=== PATIENT | male | born 1940 | race Caucasian/White ===

== ENCOUNTER 2018-06-18 10:14 | Inpatient (IN) | payer BC, MEDICARE ==
--- NOTE | 2018-06-07 10:52 | ANES ---
Addendum entered and electronically signed by Woody Knox CRNA 06/20/18 08:16: Lungs clear, Heart S1 S2 regular. Has been on low dose lovenox, last dose yesterday at noon, ok to proceed. Did relate has not had BM since surgery. Discussed pursuing this issue as soon as able to take PO nourishment. Addendum entered and electronically signed by Woody Knox CRNA 06/18/18 10:46: Heart: S1S2 regular Lungs: Clear bilaterally, no changes since assessment Original Note: Anesthesia Pre Procedure Eval HOME MEDICATIONS aspirin 81 mg tablet,delayed release 81 mg PO DAILY 04/13/18 [Last Taken Unknown] ksmxiqdekqf-wndkcblplvr-mk-mineral#3 375 mg-300 mg-25 mg-0.5 mg tablet See Rx Instructions PO .COMPLEX 04/13/18 [Last Taken Unknown] multivitamin tablet 1 tab PO DAILY 04/13/18 [Last Taken Unknown] clotrimazole-betamethasone 1 %-0.05 % topical cream 1 applic TP BID #45 g [Last Taken Unknown] triamcinolone acetonide 0.1 % topical cream 1 applic TP BID #80 g 05/22/18 [Last Taken Unknown] gabapentin 300 mg capsule 300 mg PO TID #90 cap 06/06/18 [Last Taken Unknown] Allergies/Adverse Reactions: Allergies Allergy/AdvReac Type Severity Reaction Status Date / Time morphine AdvReac nausea, Verified 06/06/18 08:30 vomiting - Planned Procedure Planned Procedure: LTK on 06/18/18, RTK on 06/20/18 Medication List Reviewed:: Yes Allergies Verified: Yes Medical History (Last Reviewed 06/07/18 @ 10:50 by Lonnie Duval CRNA) History of renal cell cancer (Resolved) Osteoarthritis (Chronic) Onset Date: Unknown Hyperlipidemia (Chronic) Onset Date: Unknown Arthritis (Chronic) Onset Date: Unknown Peripheral neuropathy Renal failure Hip pain Onset Date: Unknown Kidney stone Onset Date: Unknown Knee pain Onset Date: Unknown Surgical History (Last Reviewed 06/07/18 @ 10:50 by Lonnie Duval CRNA) Hx of melanoma excision Onset Date: ~2012 H/O colonoscopy Hx of kidney removal Onset Date: 2010 S/p nephrectomy Family History (Last Reviewed 06/07/18 @ 10:50 by Lonnie Duval CRNA) Father Heart disease - Family Anesthesia History Family History:: no untoward family reactions to anesthesia, no familial bleeding tendencies, no family history of clotting disorders, no family history of premature - Airway/Neck/Teeth Within Normal Limits:: Yes Denture Type: Full- Upper Mallampatti Score: 2 Thyromental (T-M) distance: > 6 cm Mandibulo Hyoid distance: > 3 cm - Respiratory Smoking Status: Former smoker Discussed smoking cessation including day of surgery: No Sleep Apnea currently treated: Yes Sleep Apnea by current assessment: No Discussed Risks/Treatment of ROSIO: No - Cardiovascular Patient History - Cardiac/Respiratory: Other - hx kidney cancer Tolerates Activity: Fair Heart Sounds: S1 & S2, Regular - Anesthesia Assessment and Plan ASA Class: PS, III Anesthesia Type Plan: Block - Left ultrasound guided peripher nerve block for postop analgesia, Spinal
[~2018-06-18 10:14] MED LIST: ROPIVACAINE HCL/PF 100 MG, EPINEPHrine 0.2 MG in NORMAL SALINE 100 ML IJ PRN; TRANEXAMIC ACID 1,000 MG in NORMAL SALINE 100 ML IV PRN; ceFAZolin SODIUM 1 GM VIAL IV PRN
[2018-06-18] MEDS: RINGER'S SOLUTION,LACTATED 1,000 ML IV PRN ×2 (10:55→12:40)
--- NOTE | 2018-06-18 13:19 | OR ---
Operative Report - Dictated Report Narrative: Date: 06/18/2018 Preoperative diagnosis: Left Knee degenerative joint disease. Postoperative diagnosis: Left Knee degenerative joint disease. Procedure: Left Total knee arthroplasty. Surgeon: Gabriel Osman M.D. Vp Security: John Sun PA-C Anesthesia: Spinal with regional block and local periarticular joint injection. Complications: None Specimens: Bone for disposal. Estimated blood loss: Minimal. Tourniquet time: 95 Minutes at 325 millimeters of mercury. Retained implants: Depuy Attune size 7 left lugged cemented posterior stabilized femoral component. Size 7 fixed-bearing cemented tibial platform. 7 by 5 millimeter posterior stabilized cross-linked tibial insert. 38 millimeter medialized patella button. Indications: Mr. Estrada is a 78-year-old gentleman who has bilateral knee arthrosis today he is here for a left total knee arthroplasty. This patient was followed in my clinic for period of time with significant complaints of left knee pain consistent with arthritic changes. He had failed conservative measures including, but not limited to, activity modification, passage of time, medications, and other conservative measures. Patient wished to proceed with surgical treatment. The risks, benefits, and alternatives were discussed in cli tatianna. The risks of , blood clots, bleeding, infection, nerve/tendon blood vessel/ injury, malposition of components, intraoperative fracture, postoperative limited range of motion, persistent pain, failure of components, and need for additional procedures. Patient wished to proceed consent was obtained after answering all questions. Procedure: After marking the correct extremity on the floor, the patient was taken to the operating room. A timeout was performed. IV antibiotics consisting of Ancef were administered prior to the procedure. A regional followed by spinal anesthetic was induced by anesthesia, per my request, on the operative table with all bony prominences well-padded. Vincent catheter was placed, and a bump was placed under the operative side buttock. SCDs and MARIA ELENA hose were utilized on the nonoperative leg. A well-padded tourniquet was applied to the operative thigh. The operative leg was then pre-scrubbed with alcoho,l prepped, and draped in a standard sterile fashion. After exsanguinating the extremity with an Esmarch bandage, the tourniquet was inflated. After marking out the anterior knee for standard incision centered over the patella, the skin was incised and dissected down to the joint retinaculum. The joint retinaculum was marked out as well as the horizontal axis of the patella, and a standard medial parapatellar arthrotomy was then made. The most proximal aspect of the quadriceps tendon and the patella tendon insertion were protected from release. A partial synovectomy was performed as well as a resection of the infrapatellar fat pad. The distal femoral fat pad proximal to the trochlea was also resected using cautery. The soft tissues were elevated off the medial aspect of the proximal tibia using a Rush elevator ensuring that we did not transect the medial collateral ligament. Upon initial evaluation range of motion was approximately 5 degrees to 130 degrees of flexion. There were signs of advanced arthrosis in the medial, lateral, and patellofemoral joint spaces. There were large marginal osteophytes which were removed with a rongeur. The knee was hyperflexed and the patella was tucked laterally. Protecting the surrounding soft tissues with Homans, an entry drill was placed down the femoral canal using Whitesides line for guidance into the entry point. The intramedullary femoral alignment sae was utilized in order to cut the distal femur in 5 degrees of valgus resecting 10 millimeters of bone. Next the distal femur was sized to a size 7. A posterior referencing guide was utilized to place the distal femoral cutting block in 3 degrees of external rotation. This was pinned into place. The rotation was confirmed both visually and based on anatomic landmarks. The 4 in 1 cutting jig of the appropriate size was utilized in order to make all bony cuts. The angle wing was used to ensure no notching. Retractors were utilized in order to protect surrounding soft tissues. This cut did not result in any excessive notching. We then cut the box centered over the distal femur. This allowed for resection of the anterior and posterior cruciate ligaments. I then turned my attention to the preparation of the tibia. Using an extra medullary tibial alignment sae, 3 millimeters of bone was resected off the medial articular surface. This was made perpendicular to the mechanical axis of the joint with the alignment sae centered over the ankle mortise. The alignment sae was checked and was noted to be parallel to the mechanical axis, centered over the medial one third of the tibial tubercle, par alleling the anterior surface of the tibia. We then turned our attention to the remaining meniscus and soft tissues. These were removed while protecting the surrounding ligaments and soft tissues. The marginal osteophytes off the anterior, posterior, medial, lateral aspects of the femur and tibia were removed. The tibia was sized out to a size 7. Next the tibia was drilled and punched in an externally rotated position. Next the trial femur and a series of tibial inserts were utilized in order to allow for full extension and maximal flexion. It was found that a 5 millimeter insert gave the best range of motion and stability at multiple flexion points as well as at full extension there was less than 2 mm of gapping both medially and laterally. There is minimal anterior translation with the knee at 90 degrees of flexion and no signs of being able to dislocate the knee. The patella was then prepared. The initial thickness was 23 millimeters. This was reamed down to 13 millimeters parallel to the anterior surface of the patella. It was sized out to a size 38 medialized patella button. This was then drilled and trialed. Without any medial restraint the patella tracked appropriately and did not sublux or dislocate. At this point, it was felt these were the appropriate sized implants, and all trials were removed. The standard periarticular joint injection consisting of ropivacaine, Toradol, and epinephrine were injected into the periarticular joint tissues. The bony surfaces were thoroughly irrigated with a pulsatile-suction saline irrigation device. A bone plug from the prior resected anterior chamfer cut was placed into the drill hole at the distal femur. The bony surfaces were then dried in preparation for placement of the implants. The cement was vacuum mixed per the anime designer's instructions. The cement was placed on the dry bony surfaces and posterior aspect of the implants. The implants were impacted into place, removing all extruded cement. At this point anesthesia administered tranexamic acid per protocol intravenously. The knee was placed in extension with axial loading with the trial insert while the cement cured. Once the cement cured, all remaining extruded cement was removed. The knee was placed through a range of motion with the trial insert to ensure appropriate range of motion and stability. Final range of motion was approximately 0 to 130 degrees. The knee was again thoroughly irrigated with pulsatile saline lavage. The final polyethylene insert was then impacted into place ensuring no retained soft tissues. The remaining periarticular joint injection was injected. A medium Hemovac drain was placed exiting superior laterally. The knee was then placed over a triangle and the arthrotomy was closed with interrupted #1 Vicryl after thoroughly irrigating the joint. The deep and subcutaneous tissues were closed with interrupted 0 and 3-0 Vicryl respectively. Skin was closed with a running subcutaneous 3-0 Monocryl and Prineo Dermabond dressing. 4 x 4's, Sof-Rol, and a full leg Lazaro wrap were applied. All sponge, needle, blade, and instrument counts were correct prior to closing the wounds. Postoperative condition: The patient was awoken and transferred to the postanesthesia care unit in stable condition. Plan is to be admitted to the inpatient medical/surgical floor postoperatively for 24 hours of IV antibiotics, physical therapy, occupational therapy, and medical comanagement. Patient will be weightbearing as tolerated with range of motion as tolerated. DVT prophylaxis will be with SCDs, MARIA ELENA hose, and pharmacological anticoagulation. Anticipated hospital stay is approximately 1-3 days.
[2018-06-18] MEDS ORDERED: diphenhydrAMINE HCL 50 MG/ML VIAL IV PRN (13:21)
[2018-06-18] MEDS ORDERED: ONDANSETRON HCL/PF 2 MG/ML VIAL IV PRN (13:21)
[2018-06-18] MEDS ORDERED: MAG HYDROX/ALUMINUM HYD/SIMETH 30 ML UDC PO PRN (13:21)
[2018-06-18] MEDS ORDERED: MAGNESIUM HYDROXIDE 30 ML UDC PO PRN (13:21)
[2018-06-18] MEDS ORDERED: HYDROmorphone HCL 1 MG/ML DISP.SYRIN IV PRN (13:21)
[2018-06-18] MEDS ORDERED: ACETAMINOPHEN 500 MG TABLET PO PRN (13:21)
[2018-06-18] MEDS ORDERED: ZOLPIDEM TARTRATE 5 MG TABLET PO PRN (13:21)
--- NOTE | 2018-06-18 13:39 | ANES ---
Post Anesthesia Discharge - Transfer of Care Transfer of Care handoff given to nurse: Yes - Discharge from PACU Discharge from PACU when meets criteria: Yes - Alert and comfortable
--- NOTE | 2018-06-18 13:39 | ANES ---
Anesthesia Procedure Note Procedure Note: ANESTHESIA PROCEDURE NOTE Date of Procedure: 06/18/2018 Time of procedure: 11:05 AM. Performed by: Woody Knox CRNA, MSN Personnel Adviser: Axel Donald RN. Preprocedure diagnosis: Left total knee arthroplasty. Post procedure diagnosis: Same. Procedure: Left Adductor Canal Block. Indications: Post total knee arthroplasty pain relief. Findings: See below. Details of the procedure: The patient was brought to OR #4 and placed in supine position. The patient's left femoral area to the knee was prepped with chlorhexidine and using ultrasound guidance the left femoral artery and nerve was identified and then followed to the level of the adductor canal. Lidocaine 1% was infiltrated to the skin of the intended injection site. Under ultrasound guidance the saphenous nerve was approached with visualization of a 4 inch shielded block needle. Once saphenous nerve was identified with proximity to the needle tip, the saphenous nerve was surrounded with 20 mL bupivacaine 0.25% with 1-200,000 epinephrine. Please see radiology/ultrasound report for details and retained images of the procedure. EBL: 0 Fluids: N/A. Specimen: N/A. Post procedure condition: The patient tolerated the procedure well. No complications were noted. Thank you for this consultation. Woody Knox CRNA, MSN
--- NOTE | 2018-06-18 14:04 | ANES ---
Post Anesthesia Assessment - Vital Signs Vitals: Last Vital Signs Temp 36.8 C 06/18/18 13:55 Pulse 62 06/18/18 13:55 Resp 12 06/18/18 13:55 BP 109/83 06/18/18 13:55 Pulse Ox 98 06/18/18 13:55 Airway Patency: Normal - Mental Status Level Of Consciousness: Awake, Alert, Appropriate - Pain Level Pain Score: 3 - N/V Assessment Nausea/Vomiting Presence: None Dehydration:: No
[2018-06-18] MEDS: DEXTROSE 5%-LACTATED RINGERS 1,000 ML IV PRN ×2 (14:15→22:53)
[2018-06-18] MEDS: KETOROLAC TROMETHAMINE 15 MG/ML VIAL IV SCH ×2 (14:15→20:21)
[2018-06-18] MEDS: ceFAZolin SODIUM 1 GM in DEXTROSE 5 % IN WATER 100 ML IV SCH ×4 (14:26→20:42)
[2018-06-18] MEDS: oxyCODONE HCL/ACETAMINOPHEN 1 TAB TABLET PO PRN ×2 (14:26→20:17)
[2018-06-18] MEDS: GABAPENTIN 300 MG CAPSULE PO SCH (16:16)
[2018-06-18] MEDS: SENNOSIDES/DOCUSATE SODIUM 1 TAB TABLET PO SCH (20:19)
[2018-06-18] MEDS: CLOTRIMAZOLE/BETAMET DIPROP 15 APPL TUBE TP SCH (20:20)
[2018-06-18] MEDS: TRIAMCINOLONE ACETONIDE 15 APPL TUBE TP SCH (20:21)
[2018-06-19] MEDS: KETOROLAC TROMETHAMINE 15 MG/ML VIAL IV SCH ×2 (02:32→07:54)
[2018-06-19] MEDS: ceFAZolin SODIUM 1 GM in DEXTROSE 5 % IN WATER 100 ML IV SCH ×2 (02:32)
[2018-06-19 05:24] LABS: Hematocrit 38.2 % (42.0-52.0); Hemoglobin 12.8 gm/dL (13.5-18.0); Mean Cell Volume 91.6 fl (78-100); Mean Corpuscular Hemoglobin 30.7 pg (27-31); Mean Corpuscular Hgb Conc 33.5 g/dl (32-36); Mean Platelet Volume 9.7 fl (8-11.3); Platelet Count 195 K/mm3 (150-450); Red Blood Count 4.17 M/mm3 (4.7-6.0); Red Cell Distribution Width 13.2 % (11.5-14.0); White Blood Count 8.3 K/mm3 (4.0-10.5)
[2018-06-19 05:32] LABS: Anion Gap 7.9 mmol/L (6.8-13.8); BUN/Creatinine Ratio 17.5 (9.0-21.6); Calcium * 8.4 mg/dL (7.9-10.9); Carbon Dioxide 30.6 mmol/L (24-32.6); Estimated Creat Clear 45.7; Potassium 4.5 mmol/L (3.4-4.6)
[2018-06-19] MEDS: oxyCODONE HCL/ACETAMINOPHEN 1 TAB TABLET PO PRN ×3 (06:37→19:13)
[2018-06-19] MEDS: CLOTRIMAZOLE/BETAMET DIPROP 15 APPL TUBE TP SCH ×2 (07:59→20:43)
[2018-06-19] MEDS: TRIAMCINOLONE ACETONIDE 15 APPL TUBE TP SCH ×2 (07:59→20:43)
[2018-06-19] MEDS: GABAPENTIN 300 MG CAPSULE PO SCH ×3 (08:00→17:15)
[2018-06-19] MEDS: MULTIVITAMINS 1 CAP CAPSULE PO SCH (08:01)
--- NOTE | 2018-06-19 08:11 | PN ---
Subjective - Date and Time Seen Date: 06/19/18 Time: 08:08 Subjective Narrative: Subjective: Reports no concerns. Was able to get to chair with therapy. Pain is well-controlled. Voiding without any complications. Tolerating by mouth intake. Denies any nausea or vomiting. Denies calf pain. Slept well. Physical exam: Alert and oriented to person, place and time Left lower Extremity: Palpable dorsalis pedis pulse. Sensation grossly intact to light touch. Dressings clean and dry. Able to flex and extend ankle and toes. No excessive drainage. Calf and thigh are soft and nontender. Assessment: Postop day one status post left total knee arthroplasty. Plan: Due to the need for pain control, post-operative limited mobility, protection of the surgical site and joint, monitoring of the wound, and the management of chronic medical conditions, he requires continued inpatient care as he will undergo a right total knee arthroplasty tomorrow. He will be nothing by mouth after midnight and hold his Lovenox after tonight's dose. Continue with physical and occupational therapy weightbearing as tolerated. Continue with anticoagulation. 24 hours postoperative prophylactic antibiotics. Pain control with goal to rely on oral medications. Continue bowel regimen. Will need 6 weeks with walker or assitive device to protect joint while ambulating during the recovery process. Discharge planning. Discontinue drain and continue Vincent catheter. Objective - Vitals Vitals: Last Vital Signs Temp 36.3 C 06/19/18 06:47 Pulse 52 L 06/19/18 06:47 Resp 16 06/19/18 06:47 BP 145/75 06/19/18 06:47 Pulse Ox 98 06/19/18 06:47 - Abnormal Lab Findings Abnormal Lab Findings: Abnormal Lab Results 06/19/18 06/19/18 Range/Units 05:15 05:15 RBC 4.17 L (4.7-6.0) M/mm3 Hgb 12.8 L (13.5-18.0) gm/dL Hct 38.2 L (42.0-52.0) % BUN 25 H (6-23) mg/dL Creatinine 1.43 H (0.4-1.4) mg/dL Est GFR (Non-Af Amer) 51 L (60-130) mL/min Random Glucose 134 H (70-110) mg/dL Cauti Physician Documentation - Urinary Catheter Management Urethral (Vincent) Date of Insertion: 06/18/18 Time of Insertion: 11:25 Assessment/Plan - Problems/Diagnosis (1) S/P total knee arthroplasty Problem: Acute Qualifiers: Laterality: left Qualified Code(s): Z96.652 - Presence of left artificial knee joint (2) Acute blood loss anemia Problem: Acute (3) Heart murmur, systolic Problem: Chronic (4) Hyperlipidemia Problem: Chronic Qualifiers: (5) History of renal cell cancer Problem: Resolved
[2018-06-19] MEDS ORDERED: ENOXAPARIN SODIUM 40 MG/0.4 ML SYRG SC SCH (12:21)
[2018-06-19] MEDS: SENNOSIDES/DOCUSATE SODIUM 1 TAB TABLET PO SCH (20:43)
[2018-06-20] MEDS: oxyCODONE HCL/ACETAMINOPHEN 1 TAB TABLET PO PRN ×2 (02:12→07:13)
[2018-06-20] MEDS ORDERED: TRANEXAMIC ACID 1,000 MG in NORMAL SALINE 100 ML IV PRN (06:00)
[2018-06-20] MEDS ORDERED: ceFAZolin SODIUM 1 GM VIAL IV PRN (06:00)
[2018-06-20] MEDS ORDERED: ROPIVACAINE HCL/PF 100 MG, EPINEPHrine 0.2 MG, KETOROLAC TROMETHAMINE 15 MG in NORMAL S... IJ PRN (06:00)
[2018-06-20] MEDS: RINGER'S SOLUTION,LACTATED 1,000 ML IV PRN ×2 (08:30→10:35)
[2018-06-20] MEDS: CLOTRIMAZOLE/BETAMET DIPROP 15 APPL TUBE TP SCH ×2 (10:02→22:38)
[2018-06-20] MEDS: TRIAMCINOLONE ACETONIDE 15 APPL TUBE TP SCH ×2 (10:02→22:38)
[2018-06-20] MEDS: GABAPENTIN 300 MG CAPSULE PO SCH ×3 (10:02→17:43)
[2018-06-20] MEDS: MULTIVITAMINS 1 CAP CAPSULE PO SCH (10:02)
[2018-06-20] MEDS ORDERED: DEXTROSE 5%-LACTATED RINGERS 1,000 ML IV PRN (10:30)
--- NOTE | 2018-06-20 10:35 | OR ---
Operative Report - Dictated Report Narrative: Date: 06/20/2018 Preoperative diagnosis: Right Knee degenerative joint disease. Postoperative diagnosis: Right Knee degenerative joint disease. Procedure: Right Total knee arthroplasty. Surgeon: Gabriel Osman M.D. Offal Trimmer: John Sun PA-C Anesthesia: Spinal with regional block and local periarticular joint injection. Complications: None Specimens: Bone for disposal. Estimated blood loss: Minimal. Tourniquet time: 90 Minutes at 325 millimeters of mercury. Retained implants: Depuy Attune size 8 right lugged cemented posterior stabilized femoral component. Size 7 fixed-bearing cemented tibial platform. 8 by 7 millimeter posterior stabilized cross-linked tibial insert. 38 millimeter medialized patella button. 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 This patient was followed in my clinic for period of time with significant complaints of right knee pain consistent with arthritic changes. He had failed conservative measures including, but not limited to, activity modification, passage of time, medications, and other conservative measures. Patient wished to proceed with surgical treatment. The risks, benefits, and alternatives were discussed in clinic. The risks of , blood clots, bleeding, infection, nerve/tendon blood vessel/ injury, malposition of components, intraoperative fracture, postoperative limited range of motion, persistent pain, failure of components, and need for additional procedures. Patient wished to proceed consent was obtained after answering all questions. Procedure: After marking the correct extremity on the floor, the patient was taken to the operating room. A timeout was performed. IV antibiotics consisting of Ancef were administered prior to the procedure. A regional followed by spinal anesthetic was induced by anesthesia, per my request, on the operative table with all bony prominences well-padded. Vincent catheter was already in place, and a bump was placed under the operative side buttock. SCDs and MARIA ELENA hose were utilized on the nonoperative leg. A well-padded tourniquet was applied to the operative thigh. The operative leg was then pre-scrubbed with alcoho,l prepped, and draped in a standard sterile fashion. After exsanguinating the extremity with an Esmarch bandage, the tourniquet was inflated. After marking out the anterior knee for standard incision centered over the patella, the skin was incised and dissected down to the joint retinaculum. The joint retinaculum was marked out as well as the horizontal axis of the patella, and a standard medial parapatellar arthrotomy was then made. The most proximal aspect of the quadriceps tendon and the patella tendon insertion were protected from release. A partial synovectomy was performed as well as a resection of the infrapatellar fat pad. The distal femoral fat pad proximal to the trochlea was also resected using cautery. The soft tissues were elevated off the medial aspect of the proximal tibia using a Rush elevator ensuring that we did not transect the medial collateral ligament. Upon initial evaluation range of motion was approximately 0 degrees to 130 degrees of flexion. There were signs of advanced arthrosis in the medial, lateral, and patellofemoral joint spaces. There were large marginal osteophytes which were removed with a rongeur. The knee was hyperflexed and the patella was tucked laterally. Protecting the surrounding soft tissues with Homans, an entry drill was placed down the femoral canal using Whitesides line for guidance into the entry point. The intramedullary femoral alignment sae was utilized in order to cut the distal femur in 5 degrees of valgus resecting 10 millimeters of bone. Next the distal femur was sized to a size 8. A posterior referencing guide was utilized to place the distal femoral cutting block in 3 degrees of external rotation. This was pinned into place. The rotation was confirmed both visually and based on anatomic landmarks. The 4 in 1 cutting jig of the appropriate size was utilized in order to make all bony cuts. The angle wing was used to ensure no notching. Retractors were utilized in order to protect surrounding soft tissues. This cut did not result in any excessive notching. We then cut the box centered over the distal femur. This allowed for resection of the anterior and posterior cruciate ligaments. I then turned my attention to the preparation of the tibia. Using an extra medullary tibial alignment sae, 3 millimeters of bone was resected off the medial articular surface. This was made perpendicular to the mechanical axis of the joint with the alignment sae centered over the ankle mortise. The alignment sae was checked and was noted to be parallel to the mechanical axis, centered over the medial one third of the tibial tubercle, paralleling the anterior surface of the tibia. We then turned our attention to the remaining meniscus and soft tissues. These were removed while protecting the surrounding ligaments and soft tissues. The marginal osteophytes off the anterior, posterior, medial, lateral aspects of the femur and tibia were removed. The tibia was sized out to a size 7. Next the tibia was drilled and punched in an externally rotated position. Next the trial femur and a series of tibial inserts were utilized in order to allow for full extension and maximal flexion. It was found that a 7 millimeter insert gave the best range of motion and stability at multiple flexion points as well as at full extension there was less than 2 mm of gapping both medially and laterally. There is minimal anterior translation with the knee at 90 degrees of flexion and no signs of being able to dislocate the knee. The patella was then prepared. The initial thickness was 24 millimeters. This was reamed down to 13 millimeters parallel to the anterior surface of the patella. It was sized out to a size 38 medialized patella button. This was then drilled and trialed. Without any medial restraint the patella tracked appropriately and did not sublux or dislocate. At this point, it was felt these were the appropriate sized implants, and all trials were removed. The standard periarticular joint injection consisting of ropivacaine, Toradol, and epinephrine were injected into the periarticular joint tissues. The bony surfaces were thoroughly irrigated with a pulsatile-suction saline irrigation device. A bone plug from the prior resected anterior chamfer cut was placed into the drill hole at the distal femur. The bony surfaces were then dried in preparation for placement of the implants. The cement was vacuum mixed per the financial aid advisor's instructions. The cement was placed on the dry bony surfaces and posterior aspect of the implants. The implants were impacted into place, removing all extruded cement. At this point anesthesia administered tranexamic acid per protocol intravenously. The knee was placed in extension with axial loading with the trial insert while the cement cured. Once the cement cured, all remaining extruded cement was removed. The knee was placed through a range of motion with the trial insert to ensure appropriate range of motion and stability. Final range of motion was approximately 0 to 130 degrees. The knee was again thoroughly irrigated with pulsatile saline lavage. The final polyethylene insert was then impacted into place ensuring no retained soft tissues. The remaining periarticular joint injection was injected. A medium Hemovac drain was placed exiting superior laterally. The knee was then placed over a triangle and the arthrotomy was closed with interrupted #1 Vicryl after thoroughly irrigating the joint. The deep and subcutaneous tissues were closed with interrupted 0 and 3-0 Vicryl respectively. Skin was closed with a running subcutaneous 3-0 Monocryl and Prineo Dermabond dressing. 4 x 4's, Sof-Rol, and a full leg Lazaro wrap were applied. All sponge, needle, blade, and instrument counts were correct prior to closing the wounds. Postoperative condition: The patient was awoken and transferred to the postanesthesia care unit in stable condition. Plan is to be admitted to the inpatient medical/surgical floor postoperatively for 24 hours of IV antibiotics, physical therapy, occupational therapy, and medical comanagement. Patient will be weightbearing as tolerated with range of motion as tolerated. DVT prophylaxis will be with SCDs, MARIA ELENA hose, and pharmacological anticoagulation. Anticipated hospital stay is approximately 1-3 days.
--- NOTE | 2018-06-20 10:54 | ANES ---
Anesthesia Procedure Note Procedure Note: ANESTHESIA PROCEDURE NOTE Date of Procedure: 06/20/2018 Time of procedure: 8:45 AM. Performed by: Woody Knox CRNA, MSN Junior Qa Analyst: Isabell Lewis RN. Preprocedure diagnosis: Post right total knee arthroplasty.. Post procedure diagnosis: Same. Procedure: Right Adductor Canal Block. Indications: Post right total knee arthroplasty pain relief. Findings: See below. Details of the procedure: The patient was brought to OR #4 and placed in supine position. The patient's right femoral area to the knee was prepped with chlorhexidine and using ultrasound guidance the right femoral artery and nerve was identified and then followed to the level of the adductor canal. Lidocaine 1% was infiltrated to the skin of the intended injection site. Under ultrasound guidance the saphenous nerve was approached with visualization of a 4 inch shielded block needle. Once saphenous nerve was identified with proximity to the needle tip, the saphenous nerve was surrounded with 20 mL bupivacaine 0.25% with 1-200,000 epinephrine. Please see radiology/ultrasound report for details and retained images of the procedure. EBL: 0 Fluids: N/A. Specimen: N/A. Post procedure condition: The patient tolerated the procedure well. No complications were noted. Thank you for this consultation. Woody Knox CRNA, MSN
[2018-06-20] MEDS: KETOROLAC TROMETHAMINE 15 MG/ML VIAL IV SCH ×3 (11:40→22:39)
[2018-06-20] MEDS: ceFAZolin SODIUM 1 GM in DEXTROSE 5 % IN WATER 100 ML IV SCH ×4 (12:42→17:43)
[2018-06-20] MEDS: SENNOSIDES/DOCUSATE SODIUM 1 TAB TABLET PO SCH (20:31)
[2018-06-21] MEDS: ceFAZolin SODIUM 1 GM in DEXTROSE 5 % IN WATER 100 ML IV SCH ×2 (01:11)
[2018-06-21] MEDS: KETOROLAC TROMETHAMINE 15 MG/ML VIAL IV SCH ×4 (04:40→23:06)
[2018-06-21 05:32] LABS: Anion Gap 8.7 mmol/L (6.8-13.8); BUN/Creatinine Ratio 18.4 (9.0-21.6); Calcium * 8.4 mg/dL (7.9-10.9); Carbon Dioxide 29.6 mmol/L (24-32.6); Potassium 5.3 mmol/L (3.4-4.6)
[2018-06-21 05:36] LABS: Hematocrit 34.9 % (42.0-52.0); Hemoglobin 11.4 gm/dL (13.5-18.0); Mean Cell Volume 92.3 fl (78-100); Mean Corpuscular Hemoglobin 30.2 pg (27-31); Mean Corpuscular Hgb Conc 32.7 g/dl (32-36); Mean Platelet Volume 10.1 fl (8-11.3); Platelet Count 189 K/mm3 (150-450); Red Blood Count 3.78 M/mm3 (4.7-6.0); Red Cell Distribution Width 13.1 % (11.5-14.0); White Blood Count 8.7 K/mm3 (4.0-10.5)
[2018-06-21] MEDS: oxyCODONE HCL/ACETAMINOPHEN 1 TAB TABLET PO PRN ×2 (06:36→11:25)
--- NOTE | 2018-06-21 08:31 | PN ---
Subjective - Date and Time Seen Date: 06/21/18 Time: 08:29 Subjective Narrative: Subjective: Reports no concerns. Was able to walk in the barreto with therapy. Pain is well-controlled. Voiding without any complications. Tolerating by mouth intake. Denies any nausea or vomiting. Denies calf pain. Slept well. Physical exam: Alert and oriented to person, place and time Left lower Extremity: Palpable dorsalis pedis pulse. Sensation grossly intact to light touch. Dressings clean and dry. Able to flex and extend ankle and toes. No excessive drainage. Calf and thigh are soft and nontender. Right lower extremity: Palpable dorsalis pedis pulse, sensation intact light touch, dressing dry, drain in place, able to flex and extend toes and ankle, calf is soft Assessment: Postop day 3 status post left total knee arthroplasty, postop day 1 status post right total knee Betito plasty. Plan: Due to the need for pain control, post-operative limited mobility, protection of the surgical site and joint, monitoring of the wound, and the management of chronic medical conditions, he requires continued inpatient care. continue with physical and occupational therapy weightbearing as tolerated. Continue with anticoagulation. 24 hours postoperative prophylactic antibiotics. Pain control with goal to rely on oral medications. Continue bowel regimen. Will need 6 weeks with walker or assitive device to protect joint while ambulating during the recovery process. Discharge planning. Discontinue drain and Vincent catheter. Objective - Vitals Vitals: Last Vital Signs Temp 37.7 C 06/21/18 07:56 Pulse 78 06/21/18 07:56 Resp 16 06/21/18 07:56 BP 138/51 06/21/18 07:56 Pulse Ox 91 L 06/21/18 07:56 - Abnormal Lab Findings Abnormal Lab Findings: Abnormal Lab Results 06/21/18 06/21/18 Range/Units 05:18 05:18 RBC 3.78 L (4.7-6.0) M/mm3 Hgb 11.4 L (13.5-18.0) gm/dL Hct 34.9 L (42.0-52.0) % Potassium 5.3 H (3.4-4.6) mmol/L BUN 28 H (6-23) mg/dL Creatinine 1.52 H (0.4-1.4) mg/dL Est GFR (Non-Af Amer) 47 L (60-130) mL/min Random Glucose 129 H (70-110) mg/dL Cauti Physician Documentation - Urinary Catheter Management Urethral (Vincent) Date of Insertion: 06/18/18 Time of Insertion: 11: Date of Removal: 06/21/18 Time of Removal: 07:10 Assessment/Plan - Problems/Diagnosis (1) S/P total knee arthroplasty Problem: Acute Qualifiers: Laterality: bilateral Qualified Code(s): Z96.653 - Presence of artificial knee joint, bilateral (2) Acute blood loss anemia Problem: Acute (3) Heart murmur, systolic Problem: Chronic (4) Hyperlipidemia Problem: Chronic Qualifiers: (5) History of renal cell cancer Problem: Resolved
[2018-06-21] MEDS: CLOTRIMAZOLE/BETAMET DIPROP 15 APPL TUBE TP SCH ×2 (09:13→20:51)
[2018-06-21] MEDS: TRIAMCINOLONE ACETONIDE 15 APPL TUBE TP SCH ×2 (09:13→20:50)
[2018-06-21] MEDS: MULTIVITAMINS 1 CAP CAPSULE PO SCH (09:14)
[2018-06-21] MEDS: ENOXAPARIN SODIUM 40 MG/0.4 ML SYRG SC SCH (09:14)
[2018-06-21] MEDS: GABAPENTIN 300 MG CAPSULE PO SCH ×3 (09:16→16:14)
[2018-06-21] MEDS: SENNOSIDES/DOCUSATE SODIUM 1 TAB TABLET PO SCH (20:32)
[2018-06-22] MEDS: KETOROLAC TROMETHAMINE 15 MG/ML VIAL IV SCH (04:29)
[2018-06-22] MEDS: MULTIVITAMINS 1 CAP CAPSULE PO SCH (08:37)
[2018-06-22] MEDS: ENOXAPARIN SODIUM 40 MG/0.4 ML SYRG SC SCH (08:37)
[2018-06-22] MEDS: TRIAMCINOLONE ACETONIDE 15 APPL TUBE TP SCH (08:37)
[2018-06-22] MEDS: GABAPENTIN 300 MG CAPSULE PO SCH ×2 (08:37→13:16)
[2018-06-22] MEDS: CLOTRIMAZOLE/BETAMET DIPROP 15 APPL TUBE TP SCH (08:37)
[2018-06-22] MEDS: oxyCODONE HCL/ACETAMINOPHEN 1 TAB TABLET PO PRN (08:42)
--- NOTE | 2018-06-22 13:10 | DS ---
(1) S/P total knee arthroplasty Problem: Acute Qualifiers: Laterality: bilateral Qualified Code(s): Z96.653 - Presence of artificial knee joint, bilateral (2) Acute blood loss anemia Problem: Acute (3) Heart murmur, systolic Problem: Chronic (4) Hyperlipidemia Problem: Chronic Qualifiers: (5) History of renal cell cancer Problem: Resolved Description of Stay: Mr. Estrada was admitted to the floor after undergoing staged bilateral total knee arthroplasty. Tolerated this well. Was admitted to the floor postoperatively for 24 hours of IV antibiotics, pain control, medical comanagement, and occupational and physical therapy. OT and PT were consulted to assist with activities of daily living and ambulation. Was made weightbearing as tolerated with range of motion as tolerated. Pain was initially controlled with IV regimen. This was transitioned to oral once carlos ating a by mouth intake. He had his initial total knee on the day of admission and the subsequent knee 2 days later. Was resumed on home diet and medications. Had a Vincent catheter inserted and the operating room which was discontinued on postoperative day 1 after his second total knee. A drain was placed intraoperatively into the knees which was discontinued on postoperative day 1. Lovenox SCD and MARIA ELENA hose were utilized for DVT prophylaxis. Vital signs remained stable to the hospital course. Serial labs were obtained which showed a final hemoglobin of 11.4 grams. BMP was reviewed and was stable. Physical examination throughout the hospital course showed an extremity that had sensation that was intact to light touch, palpable pulses, a benign wound, motor intact to the toes, ankle, and knee. Knee range of motion was approximately 5 degrees to 60 degrees on the left and 0-60 on the right. Once an oral pain regimen was tolerated and physical therapy goals were met, it was felt that they were stable for discharge to home. Instructions: Continue with weightbearing as tolerated and range of motion as tolerated. It is okay to shower and get the wound wet as long as there is no drainage from the wound. Do not bathe or soak the wound. If there is any drainage from the wound keep the wound clean and dry and cover with dry gauze and tape. Change every 2- 3 days as needed if there is any drainage. Cover wound while showering if there is any drainage. Continue with physical therapy. Resume home diet. Report any fever over 101.5 Fahrenheit, uncontrolled pain, increased drainage, foul odor of drainage, new or increased calf pain or shortness of breath, or any other significant complaints. A 325mg dialy aspirin will be started after finishing anticoagulation if not allergic. Continue with MARIA ELENA hose on the operative extremity until instructed otherwise. No driving until instructed otherwise. Follow up in approximately 10-14 days. Seth is having [facility] Home health and will be confined to his home due to his recent bilateral total knee arthroplasties during this hospitalization causing difficulty leaving home. The need for home senior living is to monitor medications, monitor the incisions and assist with dressings and wound care as well as to educate this. The need for PT is to strengthen his legs, assist with ambulation, and work range of motion to both knees. Occupational therapy is to assist and educate with ADLs and bathing. The need for home health skilled services is directly related to the time spent face to face with Mr. Estrada today 06/22/18 Procedures Performed: see notes below List Procedures: Bilateral total knee arthroplasty Results and Findings: Lab Pending Results 06/19/18 05:15: WBC 8.3, RBC 4.17 L, Hgb 12.8 L, Hct 38.2 L, MCV 91.6, MCH 30.7, MCHC 33.5, RDW 13.2, Plt Count 195, MPV 9.7 06/19/18 05:15: Sodium 138, Plasma Sodium 139, Potassium 4.5, Chloride 104, Carbon Dioxide 30.6, Anion Gap 7.9, BUN 25 H, Creatinine 1.43 H, Est GFR (Non-Af Amer) 51 L, BUN/Creatinine Ratio 17.5, Random Glucose 134 H, Calcium 8.4 06/21/18 05:18: WBC 8.7, RBC 3.78 L, Hgb 11.4 L, Hct 34.9 L, MCV 92.3, MCH 30.2, MCHC 32.7, RDW 13.1, Plt Count 189, MPV 10.1 06/21/18 05:18: Sodium 137, Plasma Sodium 137, Potassium 5.3 H, Chloride 104, Carbon Dioxide 29.6, Anion Gap 8.7, BUN 28 H, Creatinine 1.52 H, Est GFR (Non-Af Amer) 47 L, BUN/Creatinine Ratio 18.4, Random Glucose 129 H, Calcium 8.4 Disposition: Home Health Service Home Health Agency: [facility] Home Health Condition: Good Discharge Activity: Activity as tolerated, Weight bearing Discharge Diet: General/regular food Referrals: Zina Orantes MD [Primary Care Provider] - Additional Patient Instructions (free text): Follow up with Orthopedic Dr. Osman on MondayJuly 10 at 1:15pm. [facility] to follow at home for [place], PT and OT to evaluate and treat. Prescriptions (Any new or edited meds): Enoxaparin Sodium [Lovenox] 40 mg SC Q24H #7 disp.syrin oxyCODONE HCL/ACETAMINOPHEN [Percocet 5 MG/325 MG] 2 tab PO Q4H PRN #60 tablet PRN Reason: Moderate Pain (Pain Scale 4-6) Complete Home Medications List: Complete Home Medication List: aspirin 81 mg tablet,delayed release 81 mg PO DAILY 04/13/18 naeskrrjxvl-wmghyrdpeze-pc-mineral#3 375 mg-300 mg-25 mg-0.5 mg tablet See Rx Instructions PO DAILY 04/13/18 multivitamin tablet 1 tab PO DAILY 04/13/18 clotrimazole-betamethasone 1 %-0.05 % topical cream 1 applic TP BID #45 g 04/24/18 triamcinolone acetonide 0.1 % topical cream 1 applic TP BID #80 g 05/22/18 gabapentin 300 mg capsule 300 mg PO TID #90 cap 06/06/18 Enoxaparin Sodium [Lovenox] 40 mg SC Q24H #7 disp.syrin 06/22/18 Sennosides/Docusate Sodium [Senokot-S] 2 tab PO HS tablet 06/22/18 oxyCODONE HCL/ACETAMINOPHEN [Percocet 5 MG/325 MG] 2 tab PO Q4H PRN #60 tablet 06/22/18
[2018-06-22 14:09] VITALS: BP 143/68
== END 2018-06-22 14:10 | disposition home health service (06) | DRG 462 ==
LOC: MS 10:14 → EDSTATUS 12:30
PROVIDERS: ADMIT Orthopaedic Surgery; ATTEND Orthopaedic Surgery
CPT/HCPCS: 36415; 73560; 80048; 85027; 97110; 97116; 97161; 97163; 97165; 97166; 97530; 97535; J2405